=== PATIENT | male | born 1970 | race Asian ===

== ENCOUNTER 2023-10-06 00:51 | Emergency (ER) | payer MEDICAID, OTHER ==
[~2023-10-06] VITALS: Ht 162.6 cm; Wt 70.5 kg
[~2023-10-06 00:51] MED LIST: FA/M1TAB2 PO
[2023-10-06 00:55] VITALS: TEMP 97.8
[2023-10-06 01:36] VITALS: BP 154/91; PULSE 66; RESP 16
[2023-10-06] MEDS: AMOX TR/POT CLAV 875 MG/125 MG TABLET PO ONE (01:55)
[2023-10-06] MEDS ORDERED: AMOX-457 PO (01:59)
== END 2023-10-06 02:21 | disposition home or self-care (01) ==
LOC: EMS 00:53
DX: S61.251A Open bite of left index finger without damage to nail, initial encounter (principal); W54.0XXA Bitten by dog, initial encounter; Y93.89 Activity, other specified; Y92.89 Other specified places as the place of occurrence of the external cause; Y99.8 Other external cause status
CPT/HCPCS: 99283